=== PATIENT | male | born 2005 ===

== ENCOUNTER 2024-04-02 06:27 | Outpatient (REF) | payer OTHER, SELFPAY | END 2024-04-02 06:28 | disposition home or self-care (01) | LOC: HO.UMASIMG 06:27 | PROVIDERS: Visit Provider Family Medicine | DX: Z13.89 Encounter for screening for other disorder (principal) ==

== ENCOUNTER 2024-04-05 10:34 | Outpatient (REF) | payer OTHER, SELFPAY | END 2024-04-05 10:35 | disposition home or self-care (01) | LOC: HO.UMASIMG 10:34 | PROVIDERS: Visit Provider Family Medicine | DX: Z13.89 Encounter for screening for other disorder (principal) ==

== ENCOUNTER 2024-04-11 06:42 | Outpatient (REF) | payer OTHER, SELFPAY ==
--- NOTE | ~2024-04-11 | US_ITS ---
EXAMINATION: US SCROTUM CLINICAL INFORMATION: Right testicular pain. COMPARISON: None available. TECHNIQUE: A sonogram of the scrotum was performed assessing pritchard-scale appearance and color Doppler flow. Spectral Doppler analysis of the arterial and venous flow were performed in the testes bilaterally. FINDINGS: RIGHT: Right testicle measures 4.0 x 2.2 x 3.0 cm, volume 13.8 mL. No focal testicular parenchymal lesions are visualized. Spectral Doppler analysis of the arterial and venous flow is normal in the right testis. Right epididymal head is normal in size. No right hydrocele or varicocele is seen. Right epididymal Doppler flow is normal. LEFT: Left testicle measures 4.4 x 2.0 x 2.8 cm, volume 12.3 mL. No focal testicular parenchymal lesions are visualized. Spectral Doppler analysis of the arterial and venous flow is normal in the left testis. Left epididymal head is normal in size. No left hydrocele or varicocele is seen. Left epididymal Doppler flow is normal. Fluid signal with low level echoes adjacent to the left testicle, likely representing a small spermatocele. Possible fat-containing hernia partially visualized within the right scrotum. US/US scrotum IMPRESSION: 1. 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 2. Possible fat-containing hernia partially visualized within the right scrotum. Electronically signed by: David Palm MD 04/11/2024 08:40 PM EDT
== END 2024-04-11 06:43 | disposition home or self-care (01) ==
LOC: HO.UMASIMG 06:42
PROVIDERS: Visit Provider Family Medicine
DX: N50.811 Right testicular pain (principal)
CPT/HCPCS: 76870